=== PATIENT | female | born 1955 | race Caucasian/White ===

== ENCOUNTER 2022-03-17 09:45 | Outpatient (RCR) | payer OTHER, SELFPAY | END 2023-02-10 08:44 | disposition home or self-care (01) | PROVIDERS: Visit Provider Emergency Medicine | DX: M54.50 Low back pain, unspecified (principal); S33.6XXA Sprain of sacroiliac joint, initial encounter; Z51.89 Encounter for other specified aftercare | CPT/HCPCS: 97110 ==

== ENCOUNTER 2022-08-11 08:16 | Outpatient (CLI) | payer OTHER, SELFPAY ==
[2022-08-11 14:06] LABS: Albumin* 4.2 g/dL (3.3-5.0); Chloride* 105 mmol/L (96-114)
[2022-08-11 14:07] LABS: Potassium* 4.4 mmol/L (3.6-5.1); Sodium* 140 mmol/L (135-149)
[2022-08-11 14:09] LABS: Aspartate Amino Transferase* 23 U/L (12-35); Bilirubin Total* 0.7 mg/dL (0.1-1.5); Carbon Dioxide* 31 mmol/L (20-32); Cholesterol* 149 mg/dL (90-199); Creatinine* 0.7 mg/dL (0.5-1.5); Estimated Glomerular Filt Rate 95 ml/min; Total Protein* 6.7 g/dL (6.0-8.3)
[2022-08-11 14:10] LABS: Alanine Aminotransferase* 18 U/L (4-35); Alkaline Phosphatase* 69 U/L (40-150); Blood Urea Nitrogen* 14 mg/dL (7-30); Calcium* 9.1 mg/dL (8.4-10.6); Glucose* 93 mg/dL (60-115); HDL Cholesterol* 54 mg/dL (>=50); LDL Cholesterol Calculated 68 mg/dL (<100); Triglycerides* 135 mg/dL (40-149)
[2022-08-11 14:49] LABS: Creatinine Urine 257.6 mg/dL
[2022-08-11 14:52] LABS: Microalbumin Creatinine Ratio 60 mg/g (0-30); Microalbumin Urine 17 mg/dL
== END 2022-08-11 08:17 | disposition home or self-care (01) ==
PROVIDERS: PCP Family Medicine; Visit Provider Family Medicine
DX: E78.5 Hyperlipidemia, unspecified (principal); I10 Essential (primary) hypertension
CPT/HCPCS: 80053; 80061; 82043; 82570

== ENCOUNTER 2023-02-24 11:21 | Outpatient (CLI) | payer OTHER, SELFPAY | END 2023-02-24 11:22 | disposition home or self-care (01) | PROVIDERS: PCP Family Medicine; Visit Provider Family Medicine | DX: I10 Essential (primary) hypertension (principal) | CPT/HCPCS: 82043; 82570 ==

== ENCOUNTER 2023-03-12 07:29 | Outpatient (CLI) | payer OTHER, SELFPAY ==
--- NOTE | 2023-03-12 06:45 | W.ANESCHARGE ---
Anesthesia Charges Start Date/Time Anesthesia Start Date: 03/12/23 Anesthesia Start Time: 08:21 Stop Date/Time Anesthesia Stop Date: 03/12/23 Anesthesia Stop Time: 08:45
--- NOTE | 2023-03-12 08:45 | W.ANESCHARGE ---
Anesthesia Charges Start Date/Time Anesthesia Start Date: 03/12/23 Anesthesia Start Time: 08:21 Stop Date/Time Anesthesia Stop Date: 03/12/23 Anesthesia Stop Time: 08:45
== END 2023-03-12 07:30 | disposition home or self-care (01) ==
LOC: OP CLINIC 07:29
PROVIDERS: PCP Family Medicine; Visit Provider Internal Medicine
DX: Z12.11 Encounter for screening for malignant neoplasm of colon (principal); K64.8 Other hemorrhoids; Z86.010 Personal history of colon polyps
CPT/HCPCS: 811; 812; J2704

== ENCOUNTER 2023-04-28 13:00 | Outpatient (RCR) | payer OTHER, SELFPAY ==
--- NOTE | 2023-04-21 13:51 | PT.OPEX ---
PT [place] Outpatient Eval PT [facility] Outpatient Eval Start: 04/21/23 07:12 Freq: Status: Active Protocol: Document 04/21/23 07:13 CLJuan A (Rec: 04/21/23 07:17 CLJuan A [id number]) E-signed By Liberty Gaona PT Physical Therapy Outpatient Evaluation Insurance Information Recert Due Date 07/16/23 Insurance Name Medicare B Medical Diagnosis Veronica Shoulder Pain Treating Diagnosis Veronica Shoulder/UBP Reduced veronica UE shoulder strength Impaired veronica shoulder AROM Reduced ease of self cares and ADL's Referring MD Dr Nazia White Subjective Subjective Cristina reports having veronica shoulder pain for the past few years, not sure why. Has had RCR on the right, possibly 5 years ago. Pain seems worse when lifting more weight/using them more. Also have UB/Neck pain but not any worse due to arm pain. Denies N/T into arms . Pain is more at shoulder cuff/lateral aspect. Able to get comfortable to sleep. I use heat for pain control, but it doesn't seem like it helps . Ice just is too uncomfortable for me. Take tylenol for control. Able to perform most self cares/house cares, but slower and with pain. Pain Comments Rt dominant 0-8/10 varies per activity Date of Last Physician Visit 02/24/23 Current Work Status Retired Preferred Name ernesto Precautions Treatment Precautions/Contraindications Rt Malignant Breast Tumor/Cyst Asthma Sleep Apnea LBP LEXII-retinal aneurism Therapy Limitations/Systems Review Vision Objective Range of Motion AROM is WNL veronica shoulder Strength 5/5 but with pain Rt side. Weakness 4/5 ER 5/5 Lt shoulder, pain with testing most with ER. Assessment Assessment/Impression 68 yo female with DX of Veronica Shoulder Pain. She presents with veronica shoulder protraction and slight elevation. Increased thoracic kyphosis and slight forward head. She has normal veronica shoulder AROM, but pain at end range IR. MMT normal 5/5 with the exception of Rt shoulder ER 4-/5, Lt shoulder ER 4+/5. Hypertonic at veronica pect major/minor and UT . Trigger point sensetive at pect and veronica sup/med scapular borders. She will benefit from continued skilled physical therapy to compile and educate in proper stretch/strength and postural home ex. Thank you for this referral. Primary Functional Limitations shoulder weakness poor posture Plan of Care Rehabilitation Potential Good Physical Therapy Goals In 4-6 visits, Cristina will be able to: 1. Demonstrate proper execution of entire HEP with emphasis on alignment, reps and HOLD times. 2. Improved GH joint alingment in sitting, stance and with exercises 3. MMT increased to at least 4 +5 with testing ER 4. Report of pain reduced to an average of 4/10 LTG: pain free full use of veronica shoulder joints up to lifting 30# and prolonged repetitive use of up to 2 hours Coordination/Communication With Referral Source Treatment Plan/Direct Interventions Ice/Cold/Vasopneumatic,Joint Mobilization,Manual Therapy, Neuromuscular Re-ed,Self-Care/ Home Management,Therapeutic Activities,Therapeutic Exercises Frequency/Duration 1X/Wk for 10 visits Patient Will Be Discharged From Therapy Completion of LTG(s),Skills Plateau,Independent w/HEP, Independently Progressing Evaluation Billing Untimed Code Treatment Minutes 22 Complexity Moderate Certification Information Initial Certification Date 04/21/23 Ending Certification Date 07/16/23 Provider Signature Shows Agreement With POC & Medical Necessity Physician Signature & Date Requested Please Sign/Date Here Physician Comment/Change : Physician NPI Number #
== END 2023-07-28 16:21 | disposition home or self-care (01) ==
PROVIDERS: PCP Family Medicine; Visit Provider Family Medicine
DX: M25.512 Pain in left shoulder (principal); M25.511 Pain in right shoulder; Z74.09 Other reduced mobility; R53.1 Weakness; Z51.89 Encounter for other specified aftercare
CPT/HCPCS: 97110; 97162

== ENCOUNTER 2023-07-16 12:24 | Outpatient (CLI) | payer OTHER, SELFPAY ==
--- NOTE | 2023-07-16 13:00 | MR_ITS ---
[facility] [address] [facility] [address] Phone:?[phone] Fax:?[phone] Referring Physician Information: Shilo Torres PA-C [address] [facility] [address] Phone:?[phone] Fax:?[phone] Patient:Beronica Valenzuela D.O.B:?1955 Sex:?Female Phone:?[phone] [facility] MRN:?[id number] Exam Date:?07/16/2023 EXAM: MRI of the LEFT KNEE, without contrast CLINICAL INFORMATION: Female, 68 years old, with chronic left knee pain. INDICATION: Evaluate knee pain. PRIOR SURGERY: None reported. PLAIN FILMS: Knee radiographs dated 07/16/2023. COMPARISONS: No prior MRIs available. TECHNICAL INFORMATION: Using a 1.5T MR scanner and a localizing surface coil: sagittals: PD, PDFS coronals: PD, T2FS axials: PD, PDFS SEDATION: None CONTRAST: None FINDINGS: Knee joint: Effusion: Mild left knee effusion. Popliteal cyst: Small, unruptured popliteal (Zarate's) cyst. Loose bodies: None. Subcutaneous and extra-articular soft tissues: Unremarkable. Ligaments: ACL: Intact ACL anteromedial and posterolateral bundles, without sprain or tear. PCL: Intact PCL, without acute or chronic injury. MCL: Mild thickening involving the proximal one third of the superficial MCL, without MCL tear. LCL: Intact LCL, without injury. Posterolateral corner: Mild-moderate popliteus tendinopathy, without tear. Biceps femoris, iliotibial band, popliteofibular ligament and lateral gastrocnemius are intact. Posteromedial corner: Mild semimembranosus tendinopathy, with mild bursitis (axial T2FS series 5 images 19-24) pes anserine tendons and posterior oblique ligament are without injury, tendinopathy or bursitis. Extensor mechanism: Patellar tendon: Mild-moderate proximal patellar tendinopathy, without tear. Quadriceps tendon: Intact, without tendinopathy. Retinacula: Medial and lateral retinacula are intact. Fat pads: Unremarkable infrapatellar Hoffa's, quadriceps and prefemoral fat pads. Medial compartment: Medial meniscus: Full or near full-thickness radial tearing of the medial meniscal posterior horn/root is present over a length of 1.6 cm (sagittal T2FS series 7 images 11-15). Meniscal extrusion measures 8 mm. No parameniscal cyst. Medial femoral condyle & tibial plateau: Generalized grade III/IV chondromalacia of the medial compartment, with mild marginal osteophytosis and reactive osseous changes. Lateral compartment: Lateral meniscus: Intrasubstance degeneration and apical free edge fraying is present throughout the anterior horn/root of the lateral meniscus. No discrete lateral meniscal tear. Lateral femoral condyle & tibial plateau: Broad-based grade II chondromalacia of the lateral compartment, with minimal marginal osteophytosis. Patellofemoral joint: Patella: Generalized grade II/III chondromalacia of the patella, with mild marginal osteophytosis. Trochlea: Broad-based grade III chondromalacia of the medial facet and central sulcus, with mild marginal osteophytosis. Proximal tibiofibular joint: Unremarkable, without evidence of ligament sprain injury, joint effusion or adjacent marrow edema. Bones: No stress/occult fractures or other marrow edema/pathology. IMPRESSION: 1. Full or near full-thickness radial tearing of the posterior horn/root of the medial meniscus measuring 1.6 cm, with 8 mm of meniscal extrusion. This tear is expected to diminish the intrinsic meniscal load sharing function. 2. Tricompartmental osteoarthritis of the left knee: -Moderate-advanced osteoarthritis of the medial compartment. -Mild-moderate osteoarthritis of the patellofemoral compartment. -Minimal osteoarthritis of the lateral compartment. 3. Intrasubstance degeneration and apical free edge fraying of the lateral meniscal anterior horn/root. 4. Mild knee joint effusion with a small, unruptured popliteal (Zarate's) cyst. 5. Mild-moderate popliteus & patellar and mild semimembranosus tendinopathy, without tear. 6. Chronic sequela low-grade proximal MCL sprain. No cruciate or collateral ligament tear. BC Electronically signed on 07/17/2023 5:05:00 PM by Kishor Resendiz M.D.
--- NOTE | 2023-07-16 13:00 | CRLHL7_ITS ---
For Patients: As a result of the Cures Act, medical imaging exams and procedure reports are released immediately into your electronic medical record. You may view this report before your referring provider. If you have questions, please contact your health care provider. Indication: Knee pain Technique: Left knee 3 views Comparison: None Findings: Medial compartment narrowing and spurring. Patellofemoral spurring. Small joint effusion. No fracture. Impression: Degenerative joint disease. Dictated by Rolly Fraser MD @ 07/16/2023 1:18:02 PM (Electronically Signed)
== END 2023-07-16 12:25 | disposition home or self-care (01) ==
LOC: MRI 12:25
PROVIDERS: PCP Family Medicine; Visit Provider Physician Assistant Medical
DX: M25.562 Pain in left knee (principal); S83.242A Other tear of medial meniscus, current injury, left knee, initial encounter; M17.12 Unilateral primary osteoarthritis, left knee; M25.462 Effusion, left knee; S83.412A Sprain of medial collateral ligament of left knee, initial encounter
CPT/HCPCS: 73562; 73721

== ENCOUNTER 2023-08-11 12:25 | Emergency (ER) | payer OTHER, SELFPAY ==
[2023-08-11] VITALS (14 sets, daily range): BP systolic 121–151; BP diastolic 82–98; PULSE 54–60; RESP 16; TEMP 36.2; O2SAT 95–98; BMI 36.8
--- NOTE | 2023-08-11 14:35 | ED.ABDPAIN ---
HPI - Abdominal Pain General Time Seen by Provider: 14:35 Date Seen: 08/11/23 Chief Complaint: Abdominal Pain Stated Complaint: Intermittent R side pain, nausea Time Seen by Provider: 08/11/23 14:30 Source: patient and RN notes reviewed Mode of arrival: ambulatory Limitations: no limitations History of Present Illness HPI narrative: Patient is a 68-year-old female coming in with episodic abdominal pain starting on Wednesday. It seems to happen after eating. She had a hamburger and Khmer fries today sometime around 11 or noon, developed pain after that. No fevers or chills. She states the pain she had Wednesday night was much more severe. They did talk to the clinic and they told her she had recurrent episodes, she should come into the ER. She has had some diarrhea but admits that she is using MiraLax. She has had a gastric sleeve before, appendectomy. She also had a very large exploratory surgery about 40 or 50 years ago where a cyst ruptured in her abdomen. She had complicating pulmonary embolism after that, states she was on Coumadin and actually blood indoor kidney. This reportedly was 40-50 years ago, no recurrence of issues of this nature. She believes she still has her gallbladder and is wondering about gallbladder issues. Her pain is actually improved from lunch while she was waiting. Denies any need for any pain management or nausea management at this time. Denies any history of kidney stones. Notes no urinary issues at this time. MD elicited complaint: abdominal pain Related Data Patient : No Home Medications Medication Instructions Recorded Confirmed letrozole 2.5 mg tablet 2.5 mg PO QDAY 06/29/22 08/11/23 acetaminophen 650 mg 650 mg PO Q12H 07/03/22 08/11/23 tablet,extended release albuterol sulfate 2.5 mg/3 mL 2.5 mg continuous nebulization Q4H 07/03/22 07/23/23 (0.083 %) solution for nebulization PRN aspirin 81 mg tablet,delayed 81 mg PO QDAY 07/03/22 08/11/23 release calcium carbonate 600 mg-vitamin 1 tab PO DAILY 07/03/22 08/11/23 D3 5 mcg (200 unit) tablet cetirizine 10 mg tablet (Zyrtec) 10 mg PO QDAY 07/03/22 08/11/23 ipratropium 0.5 mg-albuterol 3 mg 3 ml inhalation QID 07/03/22 07/23/23 (2.5 mg base)/3 mL nebulization soln multivitamin 1 tab PO QAM 07/03/22 08/11/23 nitroglycerin 0.4 mg sublingual 0.4 mg sublingual Q5M PRN 07/03/22 07/23/23 tablet fluticasone furoate 100 1 ea inhalation DAILY 02/24/23 08/11/23 mcg-vilanterol 25 mcg/dose inhalation powder (Breo Ellipta) Previous Rx's Medication Instructions Recorded albuterol sulfate 90 mcg/actuation 2 puff inhalation Q4H PRN 07/22/22 aerosol inhaler shortness of breath or wheezing #8.5 grams rosuvastatin 20 mg tablet 20 mg PO QDAY #90 tabs 07/22/22 montelukast 10 mg tablet 10 mg PO QHS #90 tabs 02/24/23 (Singulair) diclofenac sodium 1 % topical gel 2 g topical QID PRN arthriris #100 06/10/23 (Voltaren Arthritis Pain) grams losartan 50 mg tablet 50 mg PO DAILY #90 tabs 07/19/23 famotidine 20 mg tablet 40 mg (2 x 20 mg) PO DAILY #180 08/05/23 tabs propranolol 20 mg tablet 20 mg PO BID #180 tabs 08/05/23 sertraline 50 mg tablet 50 mg PO DAILY #90 tabs 08/05/23 Allergies Allergy/AdvReac Type Severity Reaction Status Date / Time oxycodone Allergy Mild Verified 08/11/23 12:32 hydrocodone Allergy Unknown Unknown Verified 08/11/23 12:32 tramadol Allergy Unknown Unknown Verified 08/11/23 12:32 Review of Systems Status of ROS Reports: 6 or more systems reviewed and unremarkable except as noted in History and below [facility] Medical History History of rotator cuff tear ?Z87.39 - Personal history of other diseases of the musculoskeletal system and connective tissue (ICD-10) History of osteoarthritis ?Z87.39 - Personal history of other diseases of the musculoskeletal system and connective tissue (ICD-10) History of depression ?Z86.59 - Personal history of other mental and behavioral disorders (ICD-10) History of deep venous thrombosis ?Z86.718 - Personal history of other venous thrombosis and embolism (ICD-10) Cyst of ovary ?N83.209 - Unspecified ovarian cyst, unspecified side (ICD-10) H/O malignant neoplasm of female breast ?Z85.3 - Personal history of malignant neoplasm of breast (ICD-10) Surgical History History of intestinal surgery ?Z98.890 - Other specified postprocedural states (ICD-10) History of hernia repair ?Z98.890 - Other specified postprocedural states (ICD-10) ?Z87.19 - Personal history of other diseases of the digestive system (ICD-10) History of bilateral mastectomy ?Z90.13 - Acquired absence of bilateral breasts and nipples (ICD-10) History of bariatric surgery ?Z98.84 - Bariatric surgery status (ICD-10) History of appendectomy ?Z90.49 - Acquired absence of other specified parts of digestive tract (ICD-10) History of abdominal hysterectomy ?Z90.710 - Acquired absence of both cervix and uterus (ICD-10) H/O colonoscopy with polypectomy ?Z98.890 - Other specified postprocedural states (ICD-10) ?Z86.010 - Personal history of colonic polyps (ICD-10) Family History Father Prostate cancer High blood pressure Arthritis Brother Prostate cancer Esophageal cancer Mother High blood pressure Arthritis Stroke Neuropathy Daughter Arthritis Maternal Grandmother Diabetes Sister Brain cancer Other Breast cancer Social History What is your current living situation?: I presently have a place to live In the past 12 months, utilities in danger of being shut off: no In past 12 months, lack of transportation kept you from medical appts, meetings, work, or getting things needed for daily living: no In the past 12 mos, have been you worried that your food would run out before you had money to buy more?: never true In the past 12 mos, the food you bought just didn't last and you didn't have money to buy more?: never true Smoking Status: Never smoker How often do you have a drink containing alcohol: never AUDIT-C Alcohol total score: 0 Non-prescribed substance use: denies use How often does anyone, including family, friends and others, physically hurt you: never How often does anyone, including family, friends and others, insult or talk down to you: never How often does anyone, including family, friends and others, threaten you with harm: never How often does anyone, including family, friends and others, scream or curse at you: never Little interest or pleasure in doing things: not at all Feeling down, depressed, or hopeless: not at all Exam Const: Vital Signs, click to edit/add: Vital Signs - 24 hr 08/11/23 12:34 08/11/23 14:47 08/11/23 15:00 Temperature 97.2 F L Pulse Rate 56 L 54 L Pulse Rate [Pulse Oximeter] 59 L Respiratory Rate 16 Blood Pressure Blood Pressure [Ri ght Upper Arm] 121/82 Pulse Oximetry 95 98 97 Oxygen Delivery Me thod Room Air 08/11/23 15:02 08/11/23 15:03 08/11/23 15:15 Temperature Pulse Rate 55 L 60 55 L Pulse Rate [Pulse Oximeter] Respiratory Rate Blood Pressure 150/98 H Blood Pressure [Ri ght Upper Arm] Pulse Oximetry 96 96 96 Oxygen Delivery Me thod 08/11/23 15:30 08/11/23 15:32 08/11/23 15:45 Temperature Pulse Rate 54 L 57 L 54 L Pulse Rate [Pulse Oximeter] Respiratory Rate Blood Pressure 136/92 H Blood Pressure [Ri ght Upper Arm] Pulse Oximetry 96 96 95 Oxygen Delivery Me thod 08/11/23 16:00 08/11/23 16:02 08/11/23 16:15 Temperature Pulse Rate 56 L 56 L 54 L Pulse Rate [Pulse Oximeter] Respiratory Rate Blood Pressure 151/85 H Blood Pressure [Ri ght Upper Arm] Pulse Oximetry 95 96 97 Oxygen Delivery Me thod 08/11/23 16:30 08/11/23 16:33 Temperature Pulse Rate 55 L 55 L Pulse Rate [Pulse Oximeter] Respiratory Rate Blood Pressure 151/85 H Blood Pressure [Ri ght Upper Arm] Pulse Oximetry 95 95 Oxygen Delivery Me thod This 68-year-old female is alert, interactive, no apparent distress. Sclera clear, conjugate gaze, symmetrical facial function. Able speak in complete sentences, speech is normal. Lungs are clear, no wheezing or crackles, no tachypnea. CV regular rate and rhythm, no murmur, normal S1-S2, no S3-S4. Abdomen is mildly obese but soft. She has mild epigastric to right upper quadrant tenderness but no rebound or guarding, no organomegaly noted. Bowel sounds are present and normal. She is ambulatory into the ED of her own accord. No significant edema, neurologic exam is nonfocal. Documenting provider has reviewed patient's vital signs: yes Course Course ED Course: Will obtain appropriate blood work in right upper quadrant ultrasound. If lipase should come back positive, may need to have CT imaging done for pancreatitis. Certainly this sounds like gallbladder pathology. She is denying any pain or nausea this requiring any intervention at this time, she is advised to let me know if symptoms change. Reevaluation(s) Time of Reevaluation #1: 15:47 Reevaluation #1: Nursing staff requesting Tylenol for the pain from patient. Time of Reevaluation #2: 16:13 Reevaluation #2: Reviewed with patient that her preliminary supervisor train operations report of the ultrasound is that the gallbladder is contracted. She really could not see very well, I would favor this is being a nondiagnostic test. Patient is stable, she states she certainly had much worse pain. Pain is certainly noted to be coming after eating. We discussed low-fat diet. She reviewed that she has been trying keto diet and then with [place], eating more cookies with butter in them. Her history really seems to sound consistent with biliary colic or dysfunction. She did question if there could be biliary stones, reviewed with her if they were small enough in the gallbladder contracted, it is possible that they might not be seen. We did review biliary dysfunction. First, I would recommend getting formal outpatient appropriate gallbladder ultrasound. If that is negative in she has ongoing symptoms, would recommend a HIDA scan and potential consideration for to CT scan if her course was deferring. We discussed signs and symptoms for return to the ER in the meantime. Vital Signs Vital signs: Initial Vital Signs Temperature 97.2 F L 08/11/23 12:34 Temperature Source Temporal Artery Scan 08/11/23 12:34 Pulse Rate 59 L 08/11/23 12:34 Pulse Rhythm Regular 08/11/23 12:34 Pulse Strength 3+ Normal 08/11/23 12:34 Respiratory Rate 16 08/11/23 12:34 Blood Pressure 121/82 08/11/23 12:34 Blood Pressure Mean 95 08/11/23 12:34 Blood Pressure Position Sitting 08/11/23 12:34 Pulse Oximetry 95 08/11/23 12:34 Oxygen Delivery Method Room Air 08/11/23 12:34 Vital Signs Temperature 97.2 F L 08/11/23 12:34 Pulse Rate 59 L 08/11/23 12:34 Respiratory Rate 16 08/11/23 12:34 Blood Pressure 121/82 08/11/23 12:34 Pulse Oximetry 95 08/11/23 12:34 Oxygen Delivery Method Room Air 08/11/23 12:34 Temperature 97.2 F L 08/11/23 12:34 Pulse Rate 55 L 08/11/23 16:33 Respiratory Rate 16 08/11/23 12:34 Blood Pressure 151/85 H 08/11/23 16:33 Pulse Oximetry 95 08/11/23 16:33 Oxygen Delivery Method Room Air 08/11/23 12:34 Medications Administered Medications: Discontinued Medications Generic Name Dose Route Start Last Admin Trade Name Freq PRN Reason Stop Dose Admin Acetaminophen 1,000 mg 08/11/23 15:47 08/11/23 15:51 Acetaminophen 500 Mg Tablet PO 08/11/23 15:48 1,000 mg ONCE ONE Administration MDM - Abdominal Pain Lab Data Attestation: I reviewed the patient's lab results. Labs: Lab Results 08/11/23 08/11/23 Range/Units 14:34 15:00 WBC 6.77 (4.50-11.00) K/uL RBC 4.52 (4.00-5.20) m/uL Hgb 12.8 (12.0-16.0) gm/dL Hct 40.5 (33.0-51.0) % MCV 90 (80-100) fL MCH 28 (26-34) pg MCHC 32 (32-36) gm/dL RDW Coeff of Darron 14.5 (11.5-15.5) % Plt Count 208 (140-440) K/uL Neut % (Auto) 64.2 (42.0-72.0) % Lymph % (Auto) 22.3 (20-44) % [place] % (Auto) 10.0 (0.0-11.0) % Eos % (Auto) 2.8 (0.0-7.0) % Baso % (Auto) 0.6 (0.0-3.0) % Neut # (Auto) 4.34 (1.7-7.0) K/uL Lymph # (Auto) 1.51 (0.90-2.90) K/uL [place] # (Auto) 0.70 (0.00-0.90) K/UL Eos # (Auto) 0.19 (0.00-0.50) K/uL Baso # (Auto) 0.04 (0.00-0.30) K/uL Abs Immat Gran (auto) 0.01 (0.00-0.30) K/uL Imm/Tot Granulo (auto) 0.1 % Sodium 140 (135-149) mmol/L Potassium 3.8 (3.6-5.1) mmol/L Chloride 103 (96-114) mmol/L Carbon Dioxide 30 (20-32) mmol/L Anion Gap 7 (7-15) mEq/L BUN 17 (7-30) mg/dL Creatinine 0.6 (0.5-1.5) mg/dL Estimated Creat Clear 44.54 Estimated GFR 98 ml/min Glucose 86 (60-115) mg/dL Lactate 0.6 (0.5-1.9) mmol/L Calcium 9.5 (8.4-10.6) mg/dL Total Bilirubin 0.6 (0.1-1.5) mg/dL Direct Bilirubin 0.0 (0.0-0.5) mg/dL AST 23 (12-35) U/L ALT 19 (4-35) U/L Alkaline Phosphatase 64 (40-150) U/L Troponin I < 0.01 L (0.01-0.04) ng/mL C-Reactive Protein 0.8 (0.5-1.0) mg/dL Total Protein 7.6 (6.0-8.3) g/dL Albumin 4.6 (3.3-5.0) g/dL Lipase 89 (23-300) U/L Urine Color Yellow (Yellow) Urine Appearance Clear (Clear) Urine pH 5.5 (5.0-8.5) Ur Specific [place] 1.015 (1.000-1.030) Urine Protein Negative (Negative) Urine Glucose (UA) Negative (Negative) Urine Ketones Negative (Negative) Urine Blood Trace-lysed A (Negative) Urine Nitrite Negative (Negative) Urine Bilirubin Negative (Negative) Urine Urobilinogen 0.2 (0.2-1.0) Ur Leukocyte Esterase Trace A (Negative) Urine RBC 0-2 (0-2) Urine WBC 0-2 (0-5) Ur Squamous Epith Cells None (None-Few) Urine Bacteria None (None) Imaging Data US - abdomen: Attestation: I have reviewed the pertinent imaging results. Radiologist's impression: Patient: TORSTEN APARICIO Facility:?[facility] Patient ID:?[id number] Site Patient ID:?[id number]. Site :?[id number] Study:?US Abdomen RU-08/11/2023 3:39:50 PM Ordering Physician:Maggy Tam Final Report: INDICATION: Right upper quadrant pain. COMPARISON: None. TECHNIQUE: Real time bernard scale imaging and color Doppler analysis was performed of the right upper quadrant. FINDINGS: Liver: The liver measures 18.2 cm in length. Normal echogenicity. No focal liver lesions identified. Gallbladder: The gallbladder is contracted. No stones or sludge. No wall thickening or pericholecystic fluid. Positive sonographic Cheng sign. Bile ducts: The common bile duct measures 5 mm in diameter. Pancreas: Normal where seen. Right kidney: The right kidney measures 10.3 cm in length. No hydronephrosis. Vascular: Normal caliber proximal abdominal aorta. IMPRESSION: 1. Contracted gallbladder without stones or signs of inflammation. The patient was reportedly tender over the gallbladder fossa. 2. Exam otherwise unremarkable. ECG Data Attestation: I personally reviewed and interpreted this ECG as follows: (Sinus bradycardia, 56 beats per minute. Poor R-wave progression anterior precordial leads without any ST segment changes. Flipped T-waves V1 through V3. Again no ST segment change noted. QT corrected 420 milliseconds.) ECG interpretation date: 08/11/23 ECG interpretation time: 15:00 Prior ECG tracings: not available for review Discharge Plan Discharge Clinical Impression: Abdominal pain, acute, right upper quadrant Patient Disposition: Home, Self-Care Condition: Stable Instructions: Biliary Colic (ED), Abdominal Pain (ED) Additional Instructions: Try to avoid fatty foods at this time. Certainly can try Tylenol/ibuprofen if needed for pain, follow bottle directions for dosing. Need to have primary provider get you scheduled for outpatient gallbladder US. If you develop severe abdominal pain, have vomiting or fever with it, need to be re-evaluated in the interim. If repeat US doesn't show any pathology of the gallbladder and you still have symptoms, consider HIDA scan and possible CT imaging. Activity Level: Activity as Tolerated Discharge Diet: Low Fat/Low Cholesterol Prescriptions: No Action letrozole 2.5 mg tablet 2.5 mg PO QDAY fluticasone furoate-vilanterol [Breo Ellipta] 100-25 mcg/dose blister with device 1 ea inhalation DAILY montelukast [Singulair] 10 mg tablet 10 mg PO QHS Qty: 90 3RF nitroglycerin 0.4 mg tablet, sublingual 0.4 mg sublingual Q5M PRN Rx Instructions: do not exceed 3 doses per episode ipratropium-albuterol 0.5 mg-3 mg(2.5 mg base)/3 mL solution for nebulization 3 ml inhalation QID albuterol sulfate 2.5 mg /3 mL (0.083 %) solution for nebulization 2.5 mg continuous nebulization Q4H PRN cetirizine [Zyrtec] 10 mg tablet 10 mg PO QDAY aspirin 81 mg tablet,delayed release (DR/EC) 81 mg PO QDAY multivitamin Tablet 1 tab PO QAM acetaminophen 650 mg tablet extended release 650 mg PO Q12H calcium carbonate-vitamin D3 600 mg-5 mcg (200 unit) tablet 1 tab PO DAILY rosuvastatin 20 mg tablet 20 mg PO QDAY Qty: 90 3RF albuterol sulfate 90 mcg/actuation HFA aerosol inhaler 2 puff inhalation Q4H PRN (Reason: shortness of breath or wheezing) Qty: 8.5 0RF diclofenac sodium [Voltaren Arthritis Pain] 1 % gel 2 g topical QID PRN (Reason: arthriris) Qty: 100 0RF Rx Instructions: 2-4 grams top qid tid prn losartan 50 mg tablet 50 mg PO DAILY Qty: 90 3RF propranolol 20 mg tablet 20 mg PO BID Qty: 180 0RF famotidine 20 mg tablet 40 mg PO DAILY Qty: 180 0RF sertraline 50 mg tablet 50 mg PO DAILY Qty: 90 3RF Follow Up/Referrals: Nazia White DO [Primary Care Provider] - Stand Alone Forms: [employer] Info Instructions
--- NOTE | 2023-08-11 14:40 | CRLHL7_ITS ---
For Patients: As a result of the Century Cures Act, medical imaging exams and procedure reports are released immediately into your electronic medical record. You may view this report before your referring provider. If you have questions, please contact your health care provider. INDICATION: Right upper quadrant pain. COMPARISON: None. TECHNIQUE: Real time bernard scale imaging and color Doppler analysis was performed of the right upper quadrant. FINDINGS: Liver: The liver measures 18.2 cm in length. Normal echogenicity. No focal liver lesions identified. Gallbladder: The gallbladder is contracted. No stones or sludge. No wall thickening or pericholecystic fluid. Positive sonographic Cheng sign. Bile ducts: The common bile duct measures 5 mm in diameter. Pancreas: Normal where seen. Right kidney: The right kidney measures 10.3 cm in length. No hydronephrosis. Vascular: Normal caliber proximal abdominal aorta. IMPRESSION: 1. Contracted gallbladder without stones or signs of inflammation. The patient was reportedly tender over the gallbladder fossa. 2. Exam otherwise unremarkable. Dictated by Casie Brice MD @ 08/11/2023 4:44:23 PM (Electronically Signed)
[2023-08-11 14:49] LABS: Appearance Urine Clear (Clear); Bilirubin Urine Negative (Negative); Blood Urine Trace-lysed (Negative); Color Urine Yellow (Yellow); Glucose Urine Negative (Negative); Ketones Urine Negative (Negative); Leukocyte Esterase Urine Trace (Negative); Nitrite Urine Negative (Negative); Protein Urine Negative (Negative); Specific Gravity Urine 1.015 (1.000-1.030); Urobilinogen Urine 0.2 (0.2-1.0); pH Urine 5.5 (5.0-8.5)
[2023-08-11 14:57] LABS: RBC Urine 0-2 (0-2); WBC Urine 0-2 (0-5)
[2023-08-11 15:06] LABS: Lactate* 0.6 mmol/L (0.5-1.9)
[2023-08-11 15:07] LABS: Basophils Absolute Auto 0.04 K/uL (0.00-0.30); Basophils Percent Auto 0.6 % (0.0-3.0); Eosinophils Absolute Auto 0.19 K/uL (0.00-0.50); Eosinophils Percent Auto 2.8 % (0.0-7.0); Hematocrit 40.5 % (33.0-51.0); Hemoglobin* 12.8 gm/dL (12.0-16.0); Immature Granulocytes Abs Auto 0.01 K/uL (0.00-0.30); Immature Granulocytes Pct Auto 0.1 %; Lymphocytes Absolute Auto 1.51 K/uL (0.90-2.90); Lymphocytes Percent Auto 22.3 % (20-44); Mean Corpuscular HGB Conc 32 gm/dL (32-36); Mean Corpuscular Hemoglobin 28 pg (26-34); Mean Corpuscular Volume 90 fL (80-100); Neutrophils Absolute Auto 4.34 K/uL (1.7-7.0); Neutrophils Percent Auto 64.2 % (42.0-72.0); Platelet Count* 208 K/uL (140-440); RDW Coefficient of Variation % 14.5 % (11.5-15.5); Red Blood Count 4.52 m/uL (4.00-5.20); White Blood Count* 6.77 K/uL (4.50-11.00)
[2023-08-11 15:12] LABS: Slide Review Reflex No
[2023-08-11 15:34] LABS: Albumin* 4.6 g/dL (3.3-5.0); Chloride* 103 mmol/L (96-114)
[2023-08-11 15:35] LABS: Potassium* 3.8 mmol/L (3.6-5.1); Sodium* 140 mmol/L (135-149)
[2023-08-11 15:37] LABS: Alkaline Phosphatase* 64 U/L (40-150); Anion Gap 7 mEq/L (7-15); Aspartate Amino Transferase* 23 U/L (12-35); Bilirubin Total* 0.6 mg/dL (0.1-1.5); Carbon Dioxide* 30 mmol/L (20-32); Creatinine* 0.6 mg/dL (0.5-1.5); Est. Creatinine Clearance* 44.54; Estimated Glomerular Filt Rate 98 ml/min; Total Protein* 7.6 g/dL (6.0-8.3)
[2023-08-11 15:38] LABS: Alanine Aminotransferase* 19 U/L (4-35); Blood Urea Nitrogen* 17 mg/dL (7-30); Calcium* 9.5 mg/dL (8.4-10.6); Glucose* 86 mg/dL (60-115); Lipase* 89 U/L (23-300)
[2023-08-11 15:40] LABS: C Reactive Protein* 0.8 mg/dL (0.5-1.0)
[2023-08-11] MEDS: ACETAMINOPHEN 500 MG TABLET 1000 MG PO (15:51)
[2023-08-11 15:53] LABS: Troponin I* < 0.01 ng/mL (0.01-0.04)
== END 2023-08-11 16:46 | disposition home or self-care (01) ==
PROVIDERS: Emergency Provider Family Medicine; PCP Family Medicine
DX: R10.11 Right upper quadrant pain (principal)
CPT/HCPCS: 36415; 76705; 80053; 81001; 82248; 83605; 83690; 84484; 85025; 86140; 94761; 99284; A9270

== ENCOUNTER 2023-08-24 12:40 | Outpatient (CLI) | payer OTHER, SELFPAY ==
--- NOTE | 2023-08-24 13:00 | CRLHL7_ITS ---
For Patients: As a result of the Century Cures Act, medical imaging exams and procedure reports are released immediately into your electronic medical record. You may view this report before your referring provider. If you have questions, please contact your health care provider. Clinical History: Right upper quadrant pain Radionuclide Dose: Nuclear medicine hepatobiliary scan per protocol including gallbladder ejection fraction with CCK. 5.2 mCi 99m Tc Choletec; IV. 1.9 mcg Kinevac intravenously. Comparison: Right upper quadrant ultrasound April 08, 2023. Findings: Normal hepatic extraction and excretion of the radiopharmaceutical is present. There is prompt visualization of the common bile duct, followed by the gallbladder and in the small bowel. There is no enterogastric reflux. After the administration of CCK, the patient`s symptoms were not recorded. There is near complete emptying of the gallbladder, with calculated ejection fraction of 85 percent. Impression: Hyperkinetic gallbladder. Dictated by Phillip Cervantes MD @ 08/24/2023 4:49:54 PM (Electronically Signed)
== END 2023-08-24 12:41 | disposition home or self-care (01) ==
LOC: NM 12:42
PROVIDERS: PCP Family Medicine; Visit Provider Family Medicine
DX: R10.11 Right upper quadrant pain (principal)
CPT/HCPCS: 78227; A9537; J2805